=== PATIENT | male | born 1965 | race Caucasian/White ===

== ENCOUNTER 2020-08-07 03:49 | Inpatient (IN) | payer OTHER ==
[2020-08-07] VITALS (7 sets, daily range): BP systolic 151–195; BP diastolic 76–89
[~2020-08-07] VITALS: Ht 327.7 cm; Wt 85.7 kg
[~2020-08-07 03:49] MED LIST: AMLO5TAB88 PO; ATOR20TA PO; CALC0.253 MT; DILT60TA35 PO; HYDR-4135 PO; METFORMIN; METO25TA6 PO; OMEP20CA14 PO
[2020-08-07] MEDS ORDERED: NITROGLYCERIN OINT 1GM/INCH UDPKT TD ONE (04:00)
[2020-08-07] MEDS ORDERED: HYDRALAZINE 20MG/ML VIAL IV ONE (04:30)
[2020-08-07 04:36] LABS: BASOPHILS % 0.3 % (0.0-2.0); EOSINOPHILS % 1.1 % (0.0-5.0); HEMATOCRIT. 34.7 % (42.0-52.0); HEMOGLOBIN. 11.3 g/dL (14.0-18.0); LYMPHOCYTES % 15.2 % (20.0-50.0); MEAN CORPUSCULAR HEMOGLOBIN 29.1 pg (28.0-32.0); MEAN CORPUSCULAR VOLUME 89.4 fL (80.0-94.0); MEAN PLATELET VOLUME 9.2 fl (7.4-10.4); MONOCYTES % 5.5 % (2.0-8.0); NEUTROPHILS % 77.9 % (40.0-76.0); PLATELET 267 x1000/uL (130-400); RED BLOOD CELL COUNT 3.88 mill/uL (4.7-6.1); RED CELL DISTRIBUTION WIDTH 14.3 % (11.6-14.6)
[2020-08-07 04:43] LABS: CHLORIDE 97 mEq/L (98-107)
[2020-08-07] MEDS ORDERED: ENALAPRIL 1.25MG/ML VIAL 1ML IV SCH (07:40)
[2020-08-07] MEDS ORDERED: ACETAMINOPHEN 325MG TABLET PO PRN (09:30)
[2020-08-07] MEDS ORDERED: CLONIDINE 0.1MG TABLET PO PRN (09:30)
[2020-08-07] MEDS ORDERED: DEXTROSE 50% WATER 50ML SYRINGE IV PRN (09:30)
[2020-08-07] MEDS ORDERED: ONDANSETRON HCL 4MG/2ML INJ IV PRN (09:30)
[2020-08-07] MEDS ORDERED: HYDRALAZINE HCL 100MG TABLET PO SCH ×2 (10:00→14:00)
[2020-08-07] MEDS ORDERED: NIFEDIPINE XL 60MG TAB PO SCH (10:00)
[2020-08-07] MEDS ORDERED: ASPIRIN 81MG TABLET PO SCH (10:00)
[2020-08-07] MEDS ORDERED: BLOOD SUGAR DIAGNOSTIC STRIP TEST SCH (12:10)
[2020-08-07] MEDS ORDERED: INSULIN LISPRO 100 UNITS/ML SUBCUT SCH ×2 (12:40→13:20)
[2020-08-07] MEDS ORDERED: LANTUSUD SUBCUT (13:22)
[2020-08-07] MEDS ORDERED: NITROGLYCERIN OINT 1GM/INCH UDPKT TD SCH (15:00)
[2020-08-07] MEDS ORDERED: METOPROLOL TARTRATE 25MG TABLET PO SCH (15:00)
[2020-08-07] MEDS ORDERED: AMLODIPINE 5MG TABLET PO SCH (18:30)
[2020-08-07] MEDS ORDERED: ATORVASTATIN CALCIUM 40MG TABLET PO SCH (21:00)
== END 2020-08-07 17:00 | disposition short-term general hospital (02) | DRG 304 ==
LOC: ER 03:49 → 8WST 05:40 → ENRESERV 08:00
PROVIDERS: ADMIT Internal Medicine; ATTEND Internal Medicine
PROC: 5A1D70Z Performance of Urinary Filtration, Intermittent, Less than 6 Hours Per Day (ICD-10-PCS; principal; 2020-08-07)
DX: I16.0 Hypertensive urgency (principal); N18.6 End stage renal disease; L03.221 Cellulitis of neck; L02.11 Cutaneous abscess of neck; R78.81 Bacteremia; R07.9 Chest pain, unspecified; I13.2 Hypertensive heart and chronic kidney disease with heart failure and with stage 5 chronic kidney disease, or end stage renal disease; K21.00 Gastro-esophageal reflux disease with esophagitis, without bleeding; K29.80 Duodenitis without bleeding; E78.5 Hyperlipidemia, unspecified; E11.22 Type 2 diabetes mellitus with diabetic chronic kidney disease; I50.9 Heart failure, unspecified; I44.7 Left bundle-branch block, unspecified; I48.0 Paroxysmal atrial fibrillation; K44.9 Diaphragmatic hernia without obstruction or gangrene; D63.8 Anemia in other chronic diseases classified elsewhere; B95.61 Methicillin susceptible Staphylococcus aureus infection as the cause of diseases classified elsewhere; Z99.2 Dependence on renal dialysis; I25.2 Old myocardial infarction; Z86.19 Personal history of other infectious and parasitic diseases
CPT/HCPCS: 36415; 71045; 80053; 82962; 83880; 84484; 85025; 93005; 93306; 99291; J0360; J1815; J3490